=== PATIENT | male | born 1975 | race Two or more races ===

== ENCOUNTER 2017-09-14 08:57 | Outpatient (CLI) | payer OTHER | END 2017-09-14 17:00 | disposition home or self-care (01) | LOC: CARD 08:57 | PROVIDERS: ATTEND Psychiatry & Neurology Neurology with Special Qualifications in Child Neurology | DX: G56.03 Carpal tunnel syndrome, bilateral upper limbs (principal); G62.9 Polyneuropathy, unspecified; S44.90XA Injury of unspecified nerve at shoulder and upper arm level, unspecified arm, initial encounter; X58.XXXA Exposure to other specified factors, initial encounter; Y93.89 Activity, other specified; Y92.89 Other specified places as the place of occurrence of the external cause; Y99.8 Other external cause status | CPT/HCPCS: 95886; 95908 ==